=== PATIENT | female | born 1975 | race Caucasian/White ===

== ENCOUNTER 2018-08-15 04:49 | Emergency (ER) | payer SELFPAY ==
[~2018-08-15] VITALS: Ht 149.9 cm; Wt 108.9 kg
[2018-08-15 04:52] VITALS: BP 137/91
--- NOTE | 2018-08-15 04:55 | NUR ---
PT TAKEN TO BED 6
--- NOTE | 2018-08-15 04:55 | NUR ---
PT PRESENTS TO ED WITH NON-PRODUCTIVE COUGH AND SOB X1 DAY. LUNGS CLEAR BILAT THROUGHOUT.O2SAT 97% @ RA. VSS. A&OX4. ER MD AWARE. POSITIONED IN BED FOR COMFORT WITH HOB ELEVATED. CONTINUE TO MONITOR.
--- NOTE | 2018-08-15 05:01 | NUR ---
Dr. Landry evaluating patient at bedside.
[2018-08-15 05:11] VITALS: BP 121/86
== END 2018-08-15 05:11 | disposition home or self-care (01) ==
LOC: MED 04:49
DX: R05 Cough (principal)
CPT/HCPCS: 99283